=== PATIENT | male | born 1950 | race Caucasian/White ===

== ENCOUNTER 2019-03-12 05:34 | Day surgery (SDC) | payer MEDICARE, BC ==
[2019-03-12] MEDS ORDERED: ACETAMINOPHEN 500 MG TAB PO (06:30)
[2019-03-12] MEDS: ONDANSETRON 4 MG INJ IV ×2 (06:39→14:38)
[2019-03-12] MEDS: LANSOPRAZOLE 30 MG CAP PO (06:39)
[2019-03-12] MEDS: DEXAMETHASONE 4 MG/ML 1 ML INJ IV (06:39)
[2019-03-12] MEDS: oxyCODONE (CR) 10 MG TAB [oxyCONTIN] PO (06:40)
[2019-03-12] MEDS: VANCOMYCIN 1 GM (PMX) 250 ML IVPB ×2 (06:40→17:20)
[2019-03-12] MEDS: ACETAMINOPHEN 1000MG/100ML IV 100 ML IVPB (06:40)
[2019-03-12] MEDS ORDERED: GLYCOPYRROLATE 0.4 MG INJ (07:26)
[2019-03-12] MEDS ORDERED: ONDANSETRON 4 MG INJ (07:26)
[2019-03-12] MEDS ORDERED: DEXAMETHASONE 4 MG/ML 5 ML INJ (07:26)
[2019-03-12] MEDS ORDERED: MIDAZOLAM 1 MG/ML 2 ML INJ (07:26)
[2019-03-12] MEDS ORDERED: CEFAZOLIN 1 GM INJ (07:26)
[2019-03-12] MEDS ORDERED: PROPOFOL 20 ML (07:26)
[2019-03-12] MEDS ORDERED: NEOSTIGMINE 3 MG/3 ML SYRINGE (07:26)
[2019-03-12] MEDS ORDERED: FENTAnyl 50 MCG/ML VIAL (07:26)
[2019-03-12] MEDS ORDERED: ROCURONIUM 50 MG INJ (07:26)
[2019-03-12] MEDS ORDERED: ALBUTEROL 0.083% (NEB) 2.5 MG/3 ML AMP HHN (07:30)
[2019-03-12] MEDS ORDERED: MEPERIDINE 25 MG INJ IV (07:30)
[2019-03-12] MEDS ORDERED: IPRATROPIUM (NEB) 0.5 MG/2.5 ML AMP HHN (07:30)
[2019-03-12] MEDS ORDERED: ONDANSETRON 4 MG INJ IV ×2 (07:30)
[2019-03-12] MEDS ORDERED: EPHEDrine 25 MG/5 ML SYG IV (07:30)
[2019-03-12] MEDS ORDERED: HYDROmorphONE 1 MG/5 ML IV SYRINGE IV ×3 (07:30)
[2019-03-12] MEDS ORDERED: TRIMETHOBENZAMIDE 100 MG/ML VIAL IM ×2 (07:30)
[2019-03-12] MEDS ORDERED: DIPHENHYDRAMINE 50 MG INJ IV ×2 (07:30)
[2019-03-12] MEDS ORDERED: HYDROmorphONE 0.5 MG/0.5 ML SYG IV ×2 (07:30)
[2019-03-12] MEDS ORDERED: LABETALOL HCL 20MG INJ IV (07:30)
[2019-03-12] MEDS ORDERED: hydrALAzine 20 MG INJ IV (07:30)
[2019-03-12] MEDS ORDERED: NALOXONE (0.4 MG/ML) INJ IV ×3 (07:30→11:00)
[2019-03-12] MEDS ORDERED: FENTAnyl 50 MCG/ML VIAL IV ×3 (07:30)
[2019-03-12] MEDS ORDERED: NALBUPHINE HCL (10 MG/1 ML) INJ IV (07:30)
[2019-03-12] MEDS ORDERED: OXYCODONE/ACETAMINOPHEN (5/325) TAB PO ×2 (07:30)
[2019-03-12] MEDS ORDERED: MIDAZOLAM 1 MG/ML 2 ML INJ IV (07:30)
[2019-03-12] MEDS ORDERED: morphine SULFATE/PF (10 MG/10 ML) INJ (07:31)
[2019-03-12] MEDS: TRANEXAMIC ACID 1GM/100ML(PMX) 100 ML PRE-OP X1 IVPB ×2 (08:02→08:21)
[2019-03-12] MEDS: PAIN COCKTAIL VANCO INJ (08:10)
[2019-03-12] MEDS: POLYMYXIN B 500000 UNIT INJ (08:19)
[2019-03-12] MEDS: BACITRACIN 50000 UNITS INJ (08:19)
[2019-03-12] MEDS: TRANEXAMIC ACID 1GM/100ML(PMX) 100 ML INTRA-OP X1 IVPB ×2 (08:21→09:55)
[2019-03-12] MEDS ORDERED: TRANEXAMIC ACID 1GM/100ML(PMX) 200 ML (09:44)
[2019-03-12] MEDS ORDERED: ROPIVACAINE 0.5 % 30 ML VIAL (09:46)
[2019-03-12] MEDS ORDERED: KETAMINE (50 MG/ML) 10 ML VIAL (10:07)
[2019-03-12] MEDS ORDERED: SUGAMMADEX SODIUM 200 MG/2 ML VIAL IV (10:16)
[2019-03-12] MEDS ORDERED: BISACODYL 10 MG SUPP PR ×2 (10:30→11:00)
[2019-03-12] MEDS ORDERED: NACL 0.9% 3 ML SYG IV ×2 (10:30→11:00)
[2019-03-12] MEDS ORDERED: KETOROLAC 15 MG INJ IV ×2 (10:30→11:00)
[2019-03-12] MEDS ORDERED: oxyCODONE 5 MG TAB PO ×2 (10:30→11:00)
[2019-03-12] MEDS ORDERED: MAGNESIUM HYDROXIDE 30ML CUP PO ×2 (10:30→11:00)
[2019-03-12] MEDS ORDERED: DOCUSATE SODIUM 100 MG CAP PO (10:30)
[2019-03-12] MEDS ORDERED: SENNA/DOCUSATE NA (8.6MG/50MG) TAB PO ×2 (10:30→11:00)
[2019-03-12] MEDS ORDERED: NA PHOSPHATE/BIPHOS 133 ML ENEMA PR ×2 (10:30→11:00)
[2019-03-12] MEDS: DOCUSATE SODIUM 100 MG CAP PO (11:23)
[2019-03-12] MEDS: LACTATED RINGER'S 1,000 ML IV (11:41)
[2019-03-12] MEDS ORDERED: GABAPENTIN 100 MG CAP PO (13:00)
[2019-03-12] MEDS: GABAPENTIN 100 MG CAP PO ×2 (17:19→21:16)
[2019-03-12] MEDS ORDERED: VANCOMYCIN 1 GM (PMX) 250 ML IVPB (18:00)
[2019-03-13] MEDS: VANCOMYCIN 1 GM (PMX) 250 ML IVPB (06:13)
[2019-03-13] MEDS: CHOLECALCIFEROL 1,000 UNIT TAB PO (08:49)
[2019-03-13] MEDS: ASPIRIN (EC) 81 MG TAB PO (08:50)
[2019-03-13] MEDS: ENALAPRIL 20 MG TAB PO (08:50)
[2019-03-13] MEDS: AMLODIPINE 5 MG TAB PO (08:51)
[2019-03-13] MEDS: GABAPENTIN 100 MG CAP PO ×2 (08:51→13:32)
[2019-03-13] MEDS: DOCUSATE SODIUM 100 MG CAP PO (08:51)
[2019-03-13] MEDS: CELECOXIB 100 MG CAP PO (08:51)
[2019-03-13] MEDS ORDERED: ASPIRIN (EC) 81 MG TAB PO ×2 (09:00)
[2019-03-13] MEDS ORDERED: DOCUSATE SODIUM 100 MG CAP PO (09:00)
[2019-03-13] MEDS ORDERED: CELECOXIB 100 MG CAP PO (09:00)
[2019-03-14] MEDS ORDERED: PANTOPRAZOLE (EC) 40 MG TAB PO ×2 (06:00)
== END 2019-03-13 18:50 | disposition home or self-care (01) ==
LOC: REC 05:34 → SDS 03-13 18:50 → MS1 11:22
DX: M17.12 Unilateral primary osteoarthritis, left knee (principal); I10 Essential (primary) hypertension; E11.9 Type 2 diabetes mellitus without complications; Z79.82 Long term (current) use of aspirin; E78.5 Hyperlipidemia, unspecified; E66.9 Obesity, unspecified; Z68.32 Body mass index [BMI] 32.0-32.9, adult
CPT/HCPCS: 27447; 73560; 80048; 80061; 83036; 85025; 88304; 88311; 97110; 97116; 97162; 97530